=== PATIENT | male | born 1955 | race Caucasian/White ===

== ENCOUNTER → 2019-05-03 | Outpatient (REF) | payer MEDICARE, OTHER ==
[~2019-05-03] MED LIST: ASPI81TA26 PO; ELIQ5TAB PO; LISI10TA4 PO; TEST5GEL TOP; VITA200015 PO
== END ==
LOC: M LABDRAW1 11:03
PROVIDERS: ATTEND Nurse Practitioner Family
DX: E29.1 Testicular hypofunction (principal)

== ENCOUNTER → 2019-06-14 | Outpatient (CLI) | payer MEDICARE, OTHER ==
[~2019-06-14] MED LIST changes: +B-10TAB2 PO
--- NOTE | 2019-06-14 11:16 | REP ---
Left lower extremity deep vein duplex ultrasound: The patient has a clinical history of left lower extremity deep vein thrombus and is on anticoagulant therapy. The deep veins demonstrate normal compression, normal Doppler color flow and normal Doppler waveforms with respiration and augmentation from the popliteal vein to the common femoral vein. Impression: There is no left lower extremity deep vein thrombus. Electronically Signed by Roscoe Sharma MD 06/14/2019 11:07 A
== END ==
LOC: M RAD 10:11
PROVIDERS: ATTEND Internal Medicine Hematology & Oncology
DX: I82.402 Acute embolism and thrombosis of unspecified deep veins of left lower extremity (principal)

== ENCOUNTER → 2019-07-17 | Outpatient (CLI) | payer MEDICARE, OTHER ==
--- NOTE | 2019-07-17 13:51 | REP ---
CAROTID ULTRASOUND: Real-time ultrasound evaluation and duplex Doppler interrogation of the extracranial carotid vasculature is performed. There is mild plaquing and narrowing in both carotid bulbs extending into the internal and external carotid arteries. Luminal narrowing is less than 50%. There is no evidence of hemodynamically significant stenosis of either internal carotid artery. Normal flow velocities are seen. The vertebral arteries demonstrate normal direction of flow. RIGHT LEFT Peak systolic velocity ICA 73.1 cm/s 53.6 cm/s End diastolic velocity ICA 20.30 cm/s 19.1 cm/s Peak systolic velocity CCA 82.3 cm/s 95 cm/s Peak systolic velocity ECA 59.7 cm/s 38.2 cm/s ICA/CCA ratio 0.89 0.56 IMPRESSION: Bilateral luminal narrowing of the internal carotid arteries less than 50%. No evidence of hemodynamically significant stenosis. Electronically Signed by Roscoe Khan MD 07/17/2019 01:43 P
== END ==
LOC: M RAD 12:54
PROVIDERS: ATTEND Internal Medicine Interventional Cardiology
DX: R09.89 Other specified symptoms and signs involving the circulatory and respiratory systems (principal); I21.11 ST elevation (STEMI) myocardial infarction involving right coronary artery; I10 Essential (primary) hypertension; I65.23 Occlusion and stenosis of bilateral carotid arteries

== ENCOUNTER → 2023-08-31 | Outpatient (REF) | payer MEDICARE, BC ==
[~2023-08-31] MED LIST changes: +ASPI81CH33 PO; +ASPI81TA86 PO; +ATOR80TA59 PO; +B COCAP4 PO; +CLOP75TA2 PO; +LISI10TA22 PO; -LISI10TA4 PO; +LOSA25TA13; +METO25TA4 PO; +RANI15TA PO; +VITA100093 PO; +XARE20TA; +XARE20TA PO
[2023-08-31 18:08] LABS: TOTAL PROTEIN,RANDOM URINE 14.3 MG/DL (0.0-14.0)
[2023-08-31 18:13] LABS: CREATININE,RANDOM URINE 92.2 MG/DL
== END ==
LOC: M LAB REF 16:54
PROVIDERS: ATTEND Internal Medicine Nephrology
DX: R80.0 Isolated proteinuria (principal)

== ENCOUNTER → 2023-12-07 | Outpatient (CLI) | payer MEDICARE, BC | LOC: M RAD 07:03 | PROVIDERS: ATTEND Nurse Practitioner | DX: R74.01 Elevation of levels of liver transaminase levels (principal) ==

== ENCOUNTER → 2024-09-05 | Outpatient (REF) | payer MEDICARE, BC ==
[~2024-09-05] MED LIST changes: +LOSA100T46; +LOSA100T8; +MAPA500C PO; +NICO1DIS10; +NITR0.4S14; +ROSU10TA61
[2024-09-05 18:12] LABS: TOTAL PROTEIN,RANDOM URINE 8.8 MG/DL (0.0-14.0)
[2024-09-05 18:17] LABS: CREATININE,RANDOM URINE 68.5 MG/DL
== END ==
LOC: M LAB REF 17:00
PROVIDERS: ATTEND Internal Medicine Nephrology
DX: R80.0 Isolated proteinuria (principal)